=== PATIENT | female | born 1935 | race Caucasian/White ===

== ENCOUNTER → 2023-10-19 08:13 | Outpatient (REF) | payer MEDICARE, OTHER, SELFPAY | LOC: HWRAD 08:13 | PROVIDERS: ATTENDING PHYSICIAN Nurse Practitioner Adult Health; FAMILY PHYSICIAN Family Medicine | DX: J32.9 Chronic sinusitis, unspecified (principal) | CPT/HCPCS: 70486; 87205 ==

== ENCOUNTER → 2023-12-26 09:53 | Outpatient (REF) | payer MEDICARE, OTHER, SELFPAY ==
[2023-12-26 11:10] LABS: % Basophils 0.6 % (0-2); % Eosinophils 1.2 % (0-6); % Immature Granulocytes 0.3 % (0-0.5); % Monocytes 7.7 % (1.7-9.3); % Neutrophils 61.2 % (42.2-75.2); Absolute Eosinophils 0.1 10^3/uL (0-0.7); Absolute Lymphocytes 1.9 10^3/uL (1.2-3.4); Absolute Monocytes 0.5 10^3/uL (0.1-0.6); Hemoglobin 13.6 g/dL (12.0-16.0); Mean Corpuscular Hgb 29.6 pg (27.0-31.0); Mean Platelet Volume 8.3 fL (7.4-10.4); Nucleated Red Blood Cells % 0 %; Platelet Count 237 10^3/uL (130-400); Red Cell Dist. Width 13.1 % (11.5-14.5); White Blood Cell Count 6.5 10^3/uL (4.8-10.8)
[2023-12-26 11:52] LABS: ALT (SGPT) 34 U/L (0-35); AST (SGOT) 36 U/L (14-36); Albumin 4.2 g/dl (3.5-5.0); Alkaline Phosphatase 95 U/L (38-126); Blood Urea Nitrogen 16 mg/dl (7-17); Calcium 9.9 mg/dl (8.4-10.2); Carbon Dioxide 27 mmol/L (22-30); Chloride 102 mmol/L (98-107); Glucose 101 mg/dl (70-99); HDL Cholesterol 93 mg/dl; LDL Cholesterol, Calculated 66 mg/dl; Potassium 3.8 mmol/L (3.5-5.1); Sodium 137 mmol/L (135-145); Total Bilirubin 1.2 mg/dl (0.2-1.3); Total Cholesterol 184 mg/dl (50-199); Total Protein 6.6 g/dl (6.3-8.2); Triglyceride 125 mg/dl (10-149); Very Low Density Lipoprotein 25 mg/dl (0-30); eGFR > 60.00
[2023-12-26 12:09] LABS: TSH Reflex To Free T4 1.86 uIU/ml (0.47-4.68)
== END ==
LOC: REG 09:53
PROVIDERS: ATTENDING PHYSICIAN Family Medicine
DX: I10 Essential (primary) hypertension (principal); E78.2 Mixed hyperlipidemia; Z00.00 Encounter for general adult medical examination without abnormal findings
CPT/HCPCS: 36415; 80053; 80061; 84443; 85025

== ENCOUNTER → 2024-01-26 14:38 | Outpatient (REF) | payer MEDICARE, OTHER, SELFPAY | LOC: HWRAD 14:38 | PROVIDERS: ATTENDING PHYSICIAN Family Medicine; REFERRING PHYSICIAN Internal Medicine Endocrinology, Diabetes & Metabolism | DX: E04.1 Nontoxic single thyroid nodule (principal) | CPT/HCPCS: 76536 ==

== ENCOUNTER → 2024-06-22 08:55 | Outpatient (REF) | payer MEDICARE, OTHER, SELFPAY | LOC: HWRAD 08:55 | PROVIDERS: ATTENDING PHYSICIAN Internal Medicine Critical Care Medicine; FAMILY PHYSICIAN Family Medicine | DX: R06.02 Shortness of breath (principal) | CPT/HCPCS: 71046 ==

== ENCOUNTER → 2025-02-02 10:40 | Outpatient (REF) | payer MEDICARE, OTHER, SELFPAY | LOC: HWRAD 10:40 | PROVIDERS: ATTENDING PHYSICIAN Internal Medicine Rheumatology; FAMILY PHYSICIAN Family Medicine | DX: M81.0 Age-related osteoporosis without current pathological fracture (principal) | CPT/HCPCS: 77080 ==

== ENCOUNTER → 2025-04-26 10:03 | Outpatient (REF) | payer MEDICARE, OTHER, SELFPAY ==
[2025-04-26 12:30] LABS: Hematocrit 37.6 % (37.0-47.0); Hemoglobin 12.7 g/dL (12.0-16.0); Mean Corp Hgb Conc. 33.8 g/dL (33.0-37.0); Mean Corpuscular Volume 85.3 fL (81.0-99.0); Nucleated Red Blood Cells % 0 %; Platelet Count 268 10^3/uL (130-400); Red Cell Dist. Width 13.1 % (11.5-14.5)
[2025-04-26 12:46] LABS: ALT (SGPT) 26 U/L (0-35); AST (SGOT) 28 U/L (14-36); Albumin 4.1 g/dl (3.5-5.0); Alkaline Phosphatase 73 U/L (38-126); Blood Urea Nitrogen 16 mg/dl (7-17); Calcium 9.2 mg/dl (8.4-10.2); Carbon Dioxide 29 mmol/L (22-30); Chloride 99 mmol/L (98-107); Glucose 102 mg/dl (70-99); HDL Cholesterol 95 mg/dl; LDL Cholesterol, Calculated 53 mg/dl; Potassium 4.1 mmol/L (3.5-5.1); Sodium 133 mmol/L (135-145); Total Protein 6.4 g/dl (6.3-8.2); Very Low Density Lipoprotein 18 mg/dl (0-30); eGFR > 60.00
== END ==
LOC: HWLAB 10:03
PROVIDERS: ATTENDING PHYSICIAN Family Medicine
DX: E78.2 Mixed hyperlipidemia (principal); I10 Essential (primary) hypertension; E04.1 Nontoxic single thyroid nodule
CPT/HCPCS: 36415; 80053; 80061; 84443; 85025

== ENCOUNTER 2025-05-29 08:31 | Emergency (ER) | payer MEDICARE, OTHER, SELFPAY ==
--- NOTE | 2025-05-29 09:04 | ED.MUSCINJ ---
HPI-Injury
General
Chief Complaint: Musculo-Skeletal Complaint
Time Seen by Provider: 05/29/25 08:53
Nursing documentation reviewed up to this point in time: agreed with
History of Present Illness-Injury
Initial Injury comments:
89-year-old female presents to the ER for evaluation of pain in her left lower extremity causing electrical burning discomfort down her leg last night. Patient states that 1 week ago she was struck in the cuadra by car door when a bigg of wind closed
the door on her leg. Patient is on Eliquis and immediately developed bruising in the area. She has not been taking any pain relievers for her discomfort. She denies fevers. She has been eating and drinking without trouble. She was concerned
that she may have a blood clot prompting visit to the ER.
Past History
Past History
ED Past Medical History: Arrthythmia (Atrial fib), Asthma, CAD, Cancer, HTN, Hypercholesterolemia and Other (Osteoarthritis, Cellulitis, Peripheral neuropathy)
ED Past Surgical History: Orthopedic (L knee replacement) and Other (Left Lumpectomy)
Social History
Tobacco: Non-smoker
Alcohol: Occasional
Drug: None
Personal:
Living: alone
Employment: Retired
Family History
Family History: Other
Review of Systems
Review of Systems
Allergies reviewed?: Yes
Phy Exam
Physical Exam
Physical Exam:
Vital signs reviewed, patient is awake, alert, appears in no acute distress, conjunctiva pink, mucous membranes moist, bilateral lower extremities examination reveals hemosiderin deposition to lateral aspects of bilateral lower legs, left lower
extremity with area of cicatrix on the lateral aspect of the lower leg which is causing some constriction in trace edema to the anterior lower leg, she has a 1 cm raised area of ecchymosis on the medial aspect of her left lower leg, mild surrounding
erythema and induration, no streaking to the foot or upper leg, no palpable cords, left calf has smaller diameter than right calf, 2+ DP pulses present symmetric bilateral feet, GCS is 15
Injury Course
Orders/Labs/Results
Orders:
Orders
05/29/25 09:02
Cephalexin Monohydrate [Keflex] 500 mg PO NOW STA
MDM/Problems Addressed
Differential Diagnosis Includes:
Differential diagnosis to consider but not limited to contusion, hematoma, cellulitis along with other etiologies considered
Chronic conditions affecting care:
Atrial flutter on long-term anticoagulation, hyperlipidemia, hypertension, advanced age
*Pulse Oximetry
SaO2: 98
Oxygen Mode of Delivery: Room air
Patient hypoxic: no
*Critical Care Note
Total Time (30-74mins, 75-104mins- exclusive of procedures): Not Applicable
Update Note
Update Note:
I discussed with patient and daughter present at bedside concern for early cellulitis surrounding area of contusion. I discussed with them wound care instructions and need to increase hydration of the skin of her lower extremities in order to
prevent further skin breakdown. I discussed with them benefit of using occlusive padded bandage over area of hematoma along with alternating warmth and ice for swelling and discomfort. I encourage patient to use Tylenol for her pain. We discussed
use of antibiotics. Patient and daughter expressed understanding of plan and feel comfortable. They expressed understanding of need to follow-up with primary care physician next week for reevaluation. They have no questions at the current time
ED Attending Note
-
Portions of this chart may have been created with voice recognition software.� Occasional wrong word or��sound alike� substitutions may have occurred due to the inherent limitations of voice recognition software.
Discharge Plan
Departure
Patient Disposition: Home (Routine Discharge)
Date of Disposition: 05/29/25
Time of Disposition: 09:02
Patient with high blood pressure during this ER visit?: No
Discharge Problem:
Cellulitis, Contusion
Instructions: Cellulitis (skin infection) in adults - ED (DC)
Prescriptions:
New
cephalexin 500 mg capsule
500 mg PO Q8H Qty: 14 0RF
No Action
metoprolol succinate 25 MG tablet extended release 24 hr
25 mg PO DAILY
bhuswonw-oqm-ZZ-lycopen-lutein [Centrum Silver] 1 EACH tablet
1 ea PO DAILY
Lactobacillus acidophilus [Probiotic] 1 EACH capsule
1 ea PO DAILY
atorvastatin 20 MG tablet
20 mg PO QPM
melatonin 3 MG tablet
3 mg PO HS
hydrochlorothiazide [Microzide] 12.5 MG capsule
12.5 mg PO DAILY
diltiazem HCl 120 MG capsule,extended release 24hr
120 mg PO DAILY
losartan 100 MG tablet
100 mg PO DAILY
Biflex
2 tab PO DAILY
famotidine [Acid Controller] 20 MG tablet
20 mg PO QPM
albuterol sulfate 1 PUFF HFA aerosol inhaler
2 puff inhalation R Q4HPRN PRN (Reason: sob/wheezing)
fluticasone propion-salmeterol [Advair HFA] 1 PUFF HFA aerosol inhaler
2 puff inhalation R DAILY
vitamins A,C,O-smxi-sxmpaz [PreserVision AREDS] 1 CAP capsule
1 cap PO QPM
apixaban [Eliquis] 5 MG tablet
5 mg PO BID
cyclobenzaprine 10 MG tablet
5 mg PO TID PRN (Reason: muscle spasms ) Qty: 15 0RF
sennosides [senna] 1 TABLET tablet
2 tab PO BID 0RF
acetaminophen 325 MG tablet
650 mg PO Q6HPRN PRN (Reason: mild pain) 0RF
prochlorperazine maleate 5 MG tablet
5 mg PO Q6HPRN PRN (Reason: nausea/vomiting) 0RF
docusate sodium 100 MG capsule
100 mg PO BID 0RF
oxycodone 5 MG tablet
5 - 10 mg PO Q4HPRN PRN (Reason: moderate-severe pain ) Qty: 15 0RF
cholecalciferol (vitamin D3) 1,000 UNITS tablet
1,000 units PO DAILY 0RF
pregabalin [Lyrica] 150 MG capsule
150 mg PO BID Qty: 6 0RF
Activity Restrictions/Additional Instructions:
Complete course of antibiotics as prescribed. Please continue your current medications. Please elevate your leg when you are not walking and apply 20 minutes of moist heat alternating with 20 minutes of ice in order to help with discomfort and
swelling. Please follow-up with your primary care physician in 1 week for reevaluation and further care. Please apply either Eucerin cream or CeraVe daily after getting out of the shower in order to help with skin hydration. Return to the ER for
any concerns
Interventions
Interventions:
*Risk Screen - Suicide Last Done: 05/29/25 08:37
*General Assessment Last Done: 05/29/25 08:37
*Neglect/Abuse Screening Last Done: 05/29/25 08:37
*Nursing Disposition Last Done: 05/29/25 09:32
ED-Musculoskeletal Assessment Last Done: 05/29/25 09:29
Discharge Date and Time
Discharge Date/Time: 05/29/25 09:32
Print Language: ALBANIAN
[2025-05-29] MEDS: KEFLEX 500 MG PO (09:19)
== END 2025-05-29 09:32 | disposition home or self-care (01) ==
LOC: EMR 08:31
PROVIDERS: EMERGENCY PHYSICIAN Emergency Medicine; FAMILY PHYSICIAN Family Medicine
DX: L03.116 Cellulitis of left lower limb (principal); S80.12XA Contusion of left lower leg, initial encounter; R22.42 Localized swelling, mass and lump, left lower limb; X58.XXXA Exposure to other specified factors, initial encounter; I48.91 Unspecified atrial fibrillation; J45.909 Unspecified asthma, uncomplicated; I25.10 Atherosclerotic heart disease of native coronary artery without angina pectoris; I10 Essential (primary) hypertension; E78.00 Pure hypercholesterolemia, unspecified; G62.9 Polyneuropathy, unspecified
CPT/HCPCS: 99282; 99283

== ENCOUNTER 2025-06-23 13:31 | Emergency (ER) | payer MEDICARE, OTHER, SELFPAY ==
[2025-06-23] VITALS (7 sets, daily range): BP systolic 101–169; BP diastolic 69–95
[2025-06-23 14:05] LABS: Hematocrit 39.7 % (37.0-47.0); Hemoglobin 13.8 g/dL (12.0-16.0); Mean Corp Hgb Conc. 34.8 g/dL (33.0-37.0); Mean Corpuscular Volume 85.4 fL (81.0-99.0); Nucleated Red Blood Cells % 0 %; Platelet Count 274 10^3/uL (130-400); Red Cell Dist. Width 13.2 % (11.5-14.5)
[2025-06-23 14:14] LABS: INR 1.14; PT 14.8 Sec (11.4-14.6)
--- NOTE | 2025-06-23 14:59 | ED.GENMED ---
History of Present Illness
<Jabari Barahona MD, Resident - Last Filed: 06/23/25 16:18>
General
Chief Complaint: DVT/Possible Blood Clot
Source: patient
Time Seen by Provider: 06/23/25 14:43
History of Present Illness
History of Present Illness:
89-year-old female presents to ER for evaluation of pain in her left lower extremity causing pain in her leg, she also noticed increase in size of the left leg last night and then she had a sensation of chest tightness and a feeling of choking. She
tried to calm herself down, and was able to sleep through the night. The next morning, she still had this choking sensation in her throat and she called her primary care physician, she went to the office,EKG done in the office, she was referred to
the ER for further evaluation for dvt/pe.
She is on Eliquis 5 mg twice daily for atrial fibrillation and she is very compliant to it. She reports feeling a chest tightness with difficulty breathing that she feels like has been persistent. Currently patient lying comfortably, vitally and
hemodynamically stable.
Denies any fever, chills, chest pain, abdominal pain, lightheadedness, presyncopal or syncopal episodes.
Past History
<Jabari Barahona MD, Resident - Last Filed: 06/23/25 16:18>
Past History
ED Past Medical History: Arrthythmia (Atrial fib), Asthma, CAD, Cancer, HTN, Hypercholesterolemia and Other (Osteoarthritis, Cellulitis, Peripheral neuropathy)
ED Past Surgical History: Orthopedic (L knee replacement) and Other (Left Lumpectomy)
Social History
Tobacco: Non-smoker
Alcohol: Occasional
Drug: None
Personal:
Living: alone
Employment: Retired
Family History
Family History: Other
Review of Systems
<Jabari Barahona MD, Resident - Last Filed: 06/23/25 16:18>
Review of Systems
All Other Systems: ROS reviewed and negative except as documented in HPI and ROS
Phy Exam
<Jabari Barahona MD, Resident - Last Filed: 06/23/25 16:18>
General Physical Exam
General Presentation: well appearing and no apparent distress
Cardiovascular Exam
Cardiovascular Exam: regular rate/rhythm, no murmur, normal peripheral pulses and other (Bilateral pedal edema extending up to the knees, bruising and petechiae on bilateral legs)
Pulmonary Exam
Pulmonary Exam: lungs clear and no respiratory distress
Gastrointestinal Exam
Gastrointestinal Exam: normal bowel sounds, non tender and soft
Neurological Exam
Neurological Exam: alert and oriented x3
Musculoskeletal Exam
Musculoskeletal Exam: edema (Bilateral pedal edema extending up to the knees, bruising and petechiae, bilateral pedal pulses palpable)
Skin Exam
Skin Exam: normal color and petechia
Psychiatric Exam
Psychiatric Exam: normal mood/affect
Course
<Jabari Barahona MD, Resident - Last Filed: 06/23/25 16:18>
Orders/Labs/Results
Orders:
Orders
06/23/25 13:32
EKG [Electrocardiogram (*1)] Urgent
Reason for Study: Shortness of Breath
EKG- Treatment ONCE
06/23/25 13:53
Complete Blood Count/With Diff Urgent
Prothrombin Time Urgent
06/23/25 15:08
Comprehensive Metabolic Panel Urgent
Troponin I Urgent
06/23/25 15:15
CR Chest - 2 Views Urgent
Comment:
Reason For Exam: chest tightness,sob
06/23/25 15:16
US Periph Venous LOWER Ext LT Urgent
Comment:
Reason For Exam: swelling of LLE
Abnormal Lab Results
06/23/25 06/23/25
13:53 15:08
PT 14.8 H Sec
(11.4-14.6)
BUN 18 H mg/dl
(7-17)
Glucose 103 H mg/dl
(70-99)
06/23/25 13:53
06/23/25 15:08
Vital Signs
Initial and Last Documented VS:
Initial Vital Signs
Temp Pulse Resp BP Pulse Ox
98.5 F 95 16 169/95 99
06/23/25 13:39 06/23/25 13:39 06/23/25 13:39 06/23/25 13:39 06/23/25 13:39
Last Documented Vital Signs
Temp Pulse Resp BP Pulse Ox
98.5 F 77 15 153/72 98
06/23/25 13:39 06/23/25 17:33 06/23/25 17:01 06/23/25 17:33 06/23/25 17:30
<Raad Sampson MD - Last Filed: 06/23/25 18:21>
Orders/Labs/Results
Orders:
Orders
06/23/25 13:32
EKG [Electrocardiogram (*1)] Urgent
Reason for Study: Shortness of Breath
EKG- Treatment ONCE
06/23/25 13:53
Complete Blood Count/With Diff Urgent
Prothrombin Time Urgent
06/23/25 15:08
Comprehensive Metabolic Panel Urgent
Troponin I Urgent
06/23/25 15:15
CR Chest - 2 Views Urgent
Comment:
Reason For Exam: chest tightness,sob
06/23/25 15:16
US Periph Venous LOWER Ext LT Urgent
Comment:
Reason For Exam: swelling of LLE
Abnormal Lab Results
25 06/23/25
13:53 15:08
PT 14.8 H Sec
(11.4-14.6)
BUN 18 H mg/dl
(7-17)
Glucose 103 H mg/dl
(70-99)
06/23/25 13:53
06/23/25 15:08
Vital Signs
Initial and Last Documented VS:
Initial Vital Signs
Temp Pulse Resp BP Pulse Ox
98.5 F 95 16 169/95 99
06/23/25 13:39 06/23/25 13:39 06/23/25 13:39 06/23/25 13:39 06/23/25 13:39
Last Documented Vital Signs
Temp Pulse Resp BP Pulse Ox
98.5 F 77 15 153/72 98
06/23/25 13:39 06/23/25 17:33 06/23/25 17:01 06/23/25 17:33 06/23/25 17:30
<Jabari Barahona MD, Resident - Last Filed: 06/23/25 16:18>
MDM/Problems Addressed
Differential Diagnosis Includes:
Acute coronary syndrome
DVT/PE
Anxiety/panic attack
MDM/Problems Addressed:
Blood work including CBC and CMP within normal limits
Troponin normal
Check ultrasound of left lower extremity
Check chest x-ray
<Jabari Barahona MD, Resident - Last Filed: 06/23/25 16:18>
*Pulse Oximetry
SaO2: 98
Oxygen Mode of Delivery: Room air
Patient hypoxic: no
*Critical Care Note
Total Time (30-74mins, 75-104mins- exclusive of procedures): Not Applicable
ED Attending Note
<Jabari Barahona MD, Resident - Last Filed: 06/23/25 16:18>
-
Portions of this chart may have been created with voice recognition software.� Occasional wrong word or��sound alike� substitutions may have occurred due to the inherent limitations of voice recognition software.
<Raad Sampson MD - Last Filed: 06/23/25 18:21>
ED Attending Note
Patient seen and examined by attending physician: Yes
I performed a history and physical exam of patient and discussed management with resident, I reviewed resident's note and agree with documented findings and plan of care.: Yes
ED Attending Note:
89-year-old female here primarily with concerns of a clot in her left leg and some tightness feeling in her chest. This been since yesterday. No pleuritic pain no shortness of breath. She thought she might have a clot in her leg yesterday
although it went away. She is on Eliquis and faithful. No pleuritic pain no fever cough or other complaints. On exam patient is nontoxic in no distress. Warm and dry. Perfusing well. Lungs clear and equal. Abdomen soft and nontender. No
respiratory distress. Left leg with a small Band-Aid to the leg over a previous wound. No cellulitis. Some areas of ecchymosis to the left lateral proximal calf. No cord. No unusual swelling. Previous records reviewed. Clinically very low
suspicion for DVT or PE. She is faithful with her Eliquis. Normal pulse ox not tachycardic not tachypneic. Feel CT scan is not warranted. Leg ultrasound done for completeness which is unremarkable. Cardiac testing is stable. Chest x-ray is
negative. Discharged to follow-up
Discharge Plan
Departure
Patient Disposition: Home (Routine Discharge)
Date of Disposition: 06/23/25
Time of Disposition: 18:20
Patient with high blood pressure during this ER visit?: Yes
Discharge Problem:
Chest pain, Transient leg swelling
Instructions: BLOOD PRESSURE, Chest pain (DC)
Prescriptions:
No Action
metoprolol succinate 25 MG tablet extended release 24 hr
25 mg PO DAILY
ndlwrfhh-wcy-ID-lycopen-lutein [Centrum Silver] 1 EACH tablet
1 ea PO DAILY
Lactobacillus acidophilus [Probiotic] 1 EACH capsule
1 ea PO DAILY
atorvastatin 20 MG tablet
20 mg PO QPM
melatonin 3 MG tablet
3 mg PO HS
hydrochlorothiazide [Microzide] 12.5 MG capsule
12.5 mg PO DAILY
diltiazem HCl 120 MG capsule,extended release 24hr
120 mg PO DAILY
losartan 100 MG tablet
100 mg PO DAILY
Biflex
2 tab PO DAILY
famotidine [Acid Controller] 20 MG tablet
20 mg PO QPM
albuterol sulfate 1 PUFF HFA aerosol inhaler
2 puff inhalation R Q4HPRN PRN (Reason: sob/wheezing)
fluticasone propion-salmeterol [Advair HFA] 1 PUFF HFA aerosol inhaler
2 puff inhalation R DAILY
vitamins A,C,Y-mgrj-tjsdmj [PreserVision AREDS] 1 CAP capsule
1 cap PO QPM
apixaban [Eliquis] 5 MG tablet
5 mg PO BID
cyclobenzaprine 10 MG tablet
5 mg PO TID PRN (Reason: muscle spasms ) Qty: 15 0RF
sennosides [senna] 1 TABLET tablet
2 tab PO BID 0RF
acetaminophen 325 MG tablet
650 mg PO Q6HPRN PRN (Reason: mild pain) 0RF
prochlorperazine maleate 5 MG tablet
5 mg PO Q6HPRN PRN (Reason: nausea/vomiting) 0RF
docusate sodium 100 MG capsule
100 mg PO BID 0RF
oxycodone 5 MG tablet
5 - 10 mg PO Q4HPRN PRN (Reason: moderate-severe pain ) Qty: 15 0RF
cholecalciferol (vitamin D3) 1,000 UNITS tablet
1,000 units PO DAILY 0RF
pregabalin [Lyrica] 150 MG capsule
150 mg PO BID Qty: 6 0RF
cephalexin 500 mg capsule
500 mg PO Q8H Qty: 14 0RF
Referrals:
Jesus Kelly MD [Family Provider, Family Practice] - Follow up in 2-3 days
Interventions
Interventions:
*Risk Screen - Suicide Last Done: 06/23/25 13:39
*General Assessment Last Done: 06/23/25 16:52
*Neglect/Abuse Screening Last Done: 06/23/25 13:39
*ED COVID-19 Vaccine History Last Done: 06/23/25 16:52
*ED Influenza Vaccine History Last Done: 06/23/25 16:52
[facility] Fall Risk Assessment Tool Last Done: 06/23/25 14:25
ED- Cardiac Assessment Last Done: 06/23/25 14:34
ED- Pulmonary Assessment Last Done: 06/23/25 14:34
ED-Skin Assessment Last Done: 06/23/25 14:34
Discharge Date and Time
Print Language: URUGUAY[place]
[2025-06-23 15:30] LABS: ALT (SGPT) 23 U/L (0-35); AST (SGOT) 28 U/L (14-36); Albumin 4.1 g/dl (3.5-5.0); Alkaline Phosphatase 78 U/L (38-126); Blood Urea Nitrogen 18 mg/dl (7-17); Calcium 9.7 mg/dl (8.4-10.2); Carbon Dioxide 29 mmol/L (22-30); Chloride 103 mmol/L (98-107); Glucose 103 mg/dl (70-99); Potassium 3.6 mmol/L (3.5-5.1); Sodium 136 mmol/L (135-145); Total Protein 6.6 g/dl (6.3-8.2); eGFR > 60.00
[2025-06-23 15:41] LABS: Troponin I 0.016 ng/ml
== END 2025-06-23 18:46 | disposition home or self-care (01) ==
LOC: EMR 13:31
PROVIDERS: EMERGENCY PHYSICIAN Emergency Medicine; FAMILY PHYSICIAN Family Medicine
DX: R79.89 Other specified abnormal findings of blood chemistry (principal); R22.42 Localized swelling, mass and lump, left lower limb; I48.91 Unspecified atrial fibrillation; J45.909 Unspecified asthma, uncomplicated; I25.10 Atherosclerotic heart disease of native coronary artery without angina pectoris; E78.00 Pure hypercholesterolemia, unspecified; I10 Essential (primary) hypertension; M19.90 Unspecified osteoarthritis, unspecified site; Z79.01 Long term (current) use of anticoagulants; Z96.652 Presence of left artificial knee joint
CPT/HCPCS: 99284; 71046; 80053; 84484; 85025; 85610; 93005; 93971